=== PATIENT | male | born 1965 | race Caucasian/White ===

== ENCOUNTER 2021-11-23 11:15 | Emergency (ER) | payer OTHER ==
[~2021-11-23] VITALS: Ht 172.7 cm; Wt 108.9 kg
[2021-11-23 11:27] VITALS: BP 149/84
--- NOTE | 2021-11-23 11:35 | NUR ---
56 y/o male biba from home c/o bilateral foot pain x 1 wk. pt states he was diagnosed with plantar fascitis and given medication but states it does not work. Pt states he is suicidal and wants to slit wrists. Pt has had multiple attempts of suicide in the past. Awake and alert. Pt tearful when speaking. States 9/10 aching pain. VSS medhx: anxiety, depression
--- NOTE | 2021-11-23 11:36 | NUR ---
Gilmer PANG at bedside writing [phone] hold
--- NOTE | 2021-11-23 11:42 | NUR ---
Pt ambulated to restroom for collection of urine
[2021-11-23] MEDS ORDERED: ACETAMINOPHEN EXTRA STRENGTH 500 MG TAB PO ONE ×2 (12:50→23:35)
[2021-11-23 13:18] LABS: BASOPHILS % (AUTO) 0.3 % (0.0-2.0); EOSINOPHILS # (AUTO) 0.1 K/uL (0-0.4); EOSINOPHILS % (AUTO) 1.2 % (0.0-4.0); HEMATOCRIT 47.6 % (36-52); HEMOGLOBIN 16.5 g/dL (12.0-18.0); LYMPHOCYTES # (AUTO) 0.6 K/uL (2.0-11.5); LYMPHOCYTES % (AUTO) 12.6 % (20.5-51.1); MEAN CORPUSCULAR HEMOGLOBIN 33 pg (27-31); MEAN CORPUSCULAR HGB CONC 35 g/dL (33-37); MEAN CORPUSCULAR VOLUME 95.5 fL (80-94); MONOCYTES # (AUTO) 0.4 K/uL (0.8-1.0); MONOCYTES % (AUTO) 8.8 % (1.7-9.3); NEUTROPHILS # (AUTO) 3.9 K/uL (1.8-7.7); NEUTROPHILS % (AUTO) 77.1 % (42.2-75.2); PLATELET COUNT (AUTO) 198 K/uL (140-450); RED BLOOD CELL COUNT(AUTO) 4.99 MIL/uL (4.20-6.10); RED CELL DISTRIBUTION WIDTH 13.4 % (11.6-13.7)
[2021-11-23 13:45] LABS: ALBUMIN 3.8 g/dL (3.4-5.0); ANION GAP 14.1 (8-16); ASPARTATE AMINOTRANSFERASE 26 U/L (15-37); CARBON DIOXIDE 27.4 mmol/L (21-32); CHLORIDE 107 mmol/L (98-107); CREATININE 0.8 mg/dL (0.6-1.3); GFR ARICAN-AMERICAN 128 mL/min (>90); GLUCOSE 102 mg/dL (74-106); POTASSIUM 4.5 mmol/L (3.5-5.1); SODIUM SERUM 144 mmol/L (136-145); TOTAL BILIRUBIN 0.4 mg/dL (0.0-1.0); UREA NITROGEN, BLOOD 13 mg/dL (7-18)
[2021-11-23] MEDS ORDERED: LORazepam 1 MG TAB PO ONE (13:55)
[2021-11-23 13:57] LABS: SALICYLATE < 2.8 mg/dL (2.8-20.0)
[2021-11-23 13:58] LABS: ACETAMINOPHEN < 0.5 ug/ml (10-30)
[2021-11-23] MEDS ORDERED: diphenhydrAMINE 50 MG CAP PO ONE ×2 (14:05→22:55)
--- NOTE | 2021-11-23 15:15 | NUR ---
MOVED TO ER BED 6
[2021-11-23 17:22] LABS: BARBITURATE, URINE NEGATIVE ng/ml (NEG <=200); BENZODIAZEPINE, URINE NEGATIVE ng/mL (NEG <=200); CANNABINOID, URINE NEGATIVE ng/mL (NEG <=50); COCAINE, URINE NEGATIVE ng/mL (NEG <=300); OPIATE, URINE NEGATIVE ng/mL (NEG <=2000); PHENCYCLIDINE SCREEN,URINE NEGATIVE ng/mL (NEG <=25)
[2021-11-23] MEDS ORDERED: PARoxetine 20 MG TAB PO SCH (20:05)
[2021-11-23] MEDS ORDERED: PAX10 PO (20:06)
[2021-11-23] MEDS ORDERED: PARoxetine 10 MG TAB PO SCH (20:25)
--- NOTE | 2021-11-24 07:25 | NUR ---
GAVE TRANSFER OF CARE REPORT TO PEBBLES HERNANDEZ
--- NOTE | 2021-11-24 08:29 | NUR ---
Called ER/[facility]. He confirmed [facility] was called to discuss patient. [facility] their own patients. [facility] should have a facility to place their positive patients
--- NOTE | 2021-11-24 08:35 | NUR ---
PT BEING TELEPSYCHED AT THIS TIME.
[2021-11-24] MEDS ORDERED: PARoxetine 10 MG TAB PO SCH (09:00)
--- NOTE | 2021-11-24 10:28 | NUR ---
PT EATING BREAKFAST TRAY
--- NOTE | 2021-11-24 12:00 | NUR ---
PROVIDED PT WITH LUNCH TRAY
--- NOTE | 2021-11-24 14:10 | NUR ---
CALLED PT'S BROTHER WAYNE. NO ANSWER, LEFT MESSAGE.
[2021-11-24 14:27] VITALS: BP 143/74
--- NOTE | 2021-11-24 14:28 | NUR ---
Patient discharged with v/s stable. Written and verbal after care instructions given FOR MAJOR DEPRESSIVE DISORDER AND COVID 19 and explained. Patient verbalized understanding. Ambulatory with steady gait. All questions addressed prior to discharge. Advised to follow up with PMD.
--- NOTE | 2021-11-24 14:28 | NUR ---
PT'S FRIEND CALLED ELY. STATED WILL BE ABLE TO GIVE HIM A RIDE HOME
== END 2021-11-24 14:28 | disposition home or self-care (01) ==
LOC: MED 11:15
DX: U07.1 COVID-19 (principal); R45.851 Suicidal ideations; M72.2 Plantar fascial fibromatosis
CPT/HCPCS: 36415; 80053; 80305; 85025; 87426; 99285; G0480; G0482; Q0163; U0003

== ENCOUNTER 2021-11-28 08:00 | Inpatient (IN) | payer OTHER, SELFPAY ==
[~2021-11-28] VITALS: Ht 182.9 cm; Wt 95.3 kg
[~2021-11-28 08:00] MED LIST: PAX10 PO
[2021-11-28 08:16] VITALS: BP 132/87
--- NOTE | 2021-11-28 08:20 | NUR ---
Kendall palmer in [facility] - 11/28/21 at 1008 by [facility] All blood and urine specimens walked down to lab.
--- NOTE | 2021-11-28 08:37 | NUR ---
BIBA TO ER BED 5
--- NOTE | 2021-11-28 08:40 | NUR ---
novel and jerri swabbed at this time
--- NOTE | 2021-11-28 08:45 | NUR ---
56 y/o male, pt states he has been feeling increased anxiety and depression, states he no longer wants to live, PD states pt cut himself at home to attempt to kill himself. 3 partial thickess lacerations to wrist. Lacerations are dry and not actively bleeding at this time. Pt reports current SI, states he does not have anything to live for at this time. Resp even and unlabored on RA. PmhX: Anxiety, depression, hernia Allergies: Compazine, reglan, prozac (increased anxiety) Home meds: Vistaril
--- NOTE | 2021-11-28 09:10 | NUR ---
EKG done and reported to TAVON Rogers. MARNIE at this time. Pt remains on satellite project site monitor.
--- NOTE | 2021-11-28 09:20 | NUR ---
Radiology at bedside to perform Xray
--- NOTE | 2021-11-28 09:20 | NUR ---
All urine/blood specimens walked down to lab
[2021-11-28] MEDS ORDERED: LIDOCAINE MPF 1% 10 MG/ML VIAL INJ ONE (09:35)
--- NOTE | 2021-11-28 09:55 | NUR ---
Vicki mendiola student under supervision of TAVON Rogers at bedside to suture pt. All supplies and lidocaine at bedside
[2021-11-28] MEDS ORDERED: LORazepam 2 MG/ML VIAL IVP ONE (10:55)
[2021-11-28 11:01] LABS: BASOPHILS % (AUTO) 0.2 % (0.0-2.0); EOSINOPHILS % (AUTO) 0.6 % (0.0-4.0); HEMATOCRIT 44.8 % (36-52); HEMOGLOBIN 15.6 g/dL (12.0-18.0); LYMPHOCYTES # (AUTO) 0.7 K/uL (2.0-11.5); LYMPHOCYTES % (AUTO) 8.4 % (20.5-51.1); MEAN CORPUSCULAR HEMOGLOBIN 33 pg (27-31); MEAN CORPUSCULAR HGB CONC 35 g/dL (33-37); MEAN CORPUSCULAR VOLUME 95.7 fL (80-94); MONOCYTES # (AUTO) 0.6 K/uL (0.8-1.0); NEUTROPHILS # (AUTO) 6.5 K/uL (1.8-7.7); NEUTROPHILS % (AUTO) 82.8 % (42.2-75.2); PLATELET COUNT (AUTO) 221 K/uL (140-450); RED BLOOD CELL COUNT(AUTO) 4.68 MIL/uL (4.20-6.10); RED CELL DISTRIBUTION WIDTH 13.2 % (11.6-13.7); WHITE BLOOD COUNT (AUTO) 7.9 K/uL (4.8-10.8)
[2021-11-28 11:16] LABS: ACETAMINOPHEN 0.6 ug/ml (10-30); ALBUMIN 3.4 g/dL (3.4-5.0); ANION GAP 10.7 (8-16); ASPARTATE AMINOTRANSFERASE 34 U/L (15-37); CARBON DIOXIDE 25.7 mmol/L (21-32); CHLORIDE 106 mmol/L (98-107); CREATININE 0.5 mg/dL (0.6-1.3); GFR ARICAN-AMERICAN 220 mL/min (>90); GLUCOSE 92 mg/dL (74-106); POTASSIUM 4.4 mmol/L (3.5-5.1); SODIUM SERUM 138 mmol/L (136-145); TOTAL BILIRUBIN 0.5 mg/dL (0.0-1.0); UREA NITROGEN, BLOOD 17 mg/dL (7-18)
[2021-11-28 11:28] LABS: SALICYLATE < 2.8 mg/dL (2.8-20.0)
--- NOTE | 2021-11-28 12:50 | NUR ---
Patient appears to be resting comfortably in bed. Vital Signs within normal limits. Respirations even and unlabored. Pt safety measures in place at this time.
[2021-11-28 13:11] LABS: BENZODIAZEPINE, URINE NEGATIVE ng/mL (NEG <=200); CANNABINOID, URINE NEGATIVE ng/mL (NEG <=50); COCAINE, URINE NEGATIVE ng/mL (NEG <=300); OPIATE, URINE POSITIVE ng/mL (NEG <=2000); PHENCYCLIDINE SCREEN,URINE NEGATIVE ng/mL (NEG <=25)
[2021-11-28 13:12] LABS: BARBITURATE, URINE NEGATIVE ng/ml (NEG <=200)
[2021-11-28 13:37] LABS: APPEARANCE,URINE HAZY (CLEAR); BILIRUBIN,URINE NEGATIVE (NEGATIVE); BLOOD, URINE NEGATIVE (NEGATIVE); COLOR,URINE YELLOW (YELLOW); LEUKOCYTE ESTERASE ,URINE NEGATIVE (NEGATIVE); NITRITE, URINE NEGATIVE (NEGATIVE); UGLUCOSE NEGATIVE (NEGATIVE)
--- NOTE | 2021-11-28 14:26 | NUR ---
Patient appears to be resting comfortably in bed. Vital Signs within normal limits. Respirations even and unlabored. All safety measures in place under direct observation at this time per hospital policy.
--- NOTE | 2021-11-28 16:10 | NUR ---
Pt remains AOx4, able to make all needs knwon. Right arm lacerations closed by sutres, no active s/sx of bleeding at this time. Pt appears calm and is copperate at this time. Patient appears to be resting comfortably in bed. Vital Signs within normal limits. Respirations even and unlabored. All safety measures in place at this time. Direct observation per facility standards.
--- NOTE | 2021-11-28 17:42 | NUR ---
Patient appears to be resting comfortably in bed.Pt remains AOx4, able to make all needs knwon. Right arm lacerations closed by sutres, no active s/sx of bleeding at this time. Pt appears calm and is copperate at this time. Vital Signs within normal limits. Respirations even and unlabored. All safety measures in place at this time. Direct observation per facility standards.
--- NOTE | 2021-11-28 19:22 | NUR ---
Pt report given to MARY aSnchez. Transfer of care at this time.
[2021-11-28] MEDS ORDERED: MORPHINE SULFATE 2 MG/ML SYR IVP PRN (20:05)
[2021-11-28] MEDS ORDERED: POTASSIUM CHLORIDE 10 MEQ TABER PO PRN (20:05)
[2021-11-28] MEDS ORDERED: DOCUSATE SODIUM 100 MG GELCAP PO PRN (20:05)
[2021-11-28] MEDS ORDERED: MAG SULF 2000 MG/WATER PREMIX 50 ML IV PRN (20:05)
[2021-11-28] MEDS ORDERED: ONDANSETRON 4 MG/2 ML VIAL IVP PRN (20:05)
[2021-11-28] MEDS ORDERED: SODIUM PHOS / POTASSIUM PHOS 1 PKT PDR PO PRN (20:05)
[2021-11-28] MEDS ORDERED: ACETAMINOPHEN 325 MG TAB PO PRN (20:05)
--- NOTE | 2021-11-28 20:37 | NUR ---
[facility] [phone]
[2021-11-28] MEDS: LORazepam 2 MG/ML VIAL IM/IVP PRN (21:10)
[2021-11-28 22:09] LABS: PROTHROMBIN TIME 10.8 secs (10.8-13.4)
[2021-11-28 22:10] LABS: PHOSPHORUS 1.9 mg/dL (2.5-4.9); THYROID STIMULATING HORMONE 0.58 uIU/mL (0.34-3.74)
--- NOTE | 2021-11-29 06:50 | NUR ---
PATIENT HAS BEEN SCREENED AND CATEGORIZED HIGH NUTRITION RISK. PATIENT WILL BE SEEN WITHIN 1-2 DAYS OF ADMISSION. 11/30/21-12/01/21 STEPHAN RODRIGUEZ MS, RDN Addendum: 12/01/21 at [address] PATIENT HAS BEEN RE-CATEGORIZED LOW NUTRITION RISK. PATIENT WILL BE SEEN WITHIN 7 DAYS OF ADMISSION. 12/05/[address]
[2021-11-29 07:21] LABS: ALBUMIN 3.3 g/dL (3.4-5.0); ANION GAP 11.6 (8-16); CARBON DIOXIDE 29.7 mmol/L (21-32); CREATININE 0.7 mg/dL (0.6-1.3); MAGNESIUM 2.1 mg/dL (1.8-2.4); POTASSIUM 4.3 mmol/L (3.5-5.1); TOTAL BILIRUBIN 0.5 mg/dL (0.0-1.0)
--- NOTE | 2021-11-29 07:30 | NUR ---
REPORT RECEIVED FROM MARY SANDOVAL FOR CONTINUITY OF CARE.
--- NOTE | 2021-11-29 07:30 | NUR ---
REPORT GIVEN TO YOUSUF HERNANDEZ.
[2021-11-29 07:34] LABS: BASOPHILS % (AUTO) 0.4 % (0.0-2.0); EOSINOPHILS # (AUTO) 0.1 K/uL (0-0.4); EOSINOPHILS % (AUTO) 1.6 % (0.0-4.0); HEMATOCRIT 42.8 % (36-52); HEMOGLOBIN 14.9 g/dL (12.0-18.0); LYMPHOCYTES # (AUTO) 1.2 K/uL (2.0-11.5); LYMPHOCYTES % (AUTO) 17.5 % (20.5-51.1); MEAN CORPUSCULAR HEMOGLOBIN 33 pg (27-31); MEAN CORPUSCULAR HGB CONC 35 g/dL (33-37); MONOCYTES # (AUTO) 0.6 K/uL (0.8-1.0); MONOCYTES % (AUTO) 9.7 % (1.7-9.3); NEUTROPHILS # (AUTO) 4.7 K/uL (1.8-7.7); NEUTROPHILS % (AUTO) 70.8 % (42.2-75.2); PLATELET COUNT (AUTO) 225 K/uL (140-450); RED BLOOD CELL COUNT(AUTO) 4.45 MIL/uL (4.20-6.10); RED CELL DISTRIBUTION WIDTH 13.1 % (11.6-13.7); WHITE BLOOD COUNT (AUTO) 6.7 K/uL (4.8-10.8)
--- NOTE | 2021-11-29 07:50 | NUR ---
Kendall palmer in [facility] - 11/29/21 at 0803 by [email or web address] STONE SPECIMEN COLLECTED
--- NOTE | 2021-11-29 08:00 | NUR ---
Kendall palmer in [facility] - 11/29/21 at 0803 by [email or web address] STONE SPECIMEN TAKEN TO LAB
--- NOTE | 2021-11-29 08:15 | NUR ---
Note estela in [facility] - 11/29/21 at 0843 by [email or web address] BREAKFAST GIVEN TO PATIENT, NO DISTRESS NOTED. ALL NEEDS MET AT THIS TIME.
[2021-11-29] MEDS: LORazepam 2 MG/ML VIAL IM/IVP PRN (08:18)
--- NOTE | 2021-11-29 08:18 | NUR ---
PATIENT IN EMOTIONAL DISTRESS, VOICED INCREASE IN ANXIETY. PRN ATIVAN GIVEN, PATIENT TOLERATED WELL.
--- NOTE | 2021-11-29 08:30 | NUR ---
PATIENT GIVEN BREAKFAST, ANXIETY LEVELS DECREASED, NO DISTRESS NOTED AT THIS TIME. ALL PATIENT NEEDS MET.
--- NOTE | 2021-11-29 08:45 | NUR ---
PATIENT RESTING COMFORTABLY IN BED.
--- NOTE | 2021-11-29 10:57 | NUR ---
PATIENT ESCORTED TO RESTROOM W/ MALE GLOBAL CHIEF CREATIVE OFFICER
--- NOTE | 2021-11-29 11:02 | NUR ---
PATIENT BACK IN BED, ALL NEEDS MET AT THIS TIME
--- NOTE | 2021-11-29 12:52 | NUR ---
PATIENT RESTING COMFORTABLY IN BED.
[2021-11-29] MEDS ORDERED: HYDROXYZINE HYDROCHLORIDE 25 MG TAB PO PRN (13:20)
[2021-11-29] MEDS: HYDROcodone/APAP 5/325 MG 1 TAB TAB PO PRN (16:19)
--- NOTE | 2021-11-29 19:06 | NUR ---
REPORT RECEIVED FROM FILIPPO TO. ASSUMED CARE AT THIS TIME.
--- NOTE | 2021-11-29 19:31 | NUR ---
Pt report given to MARY NAZARIO . Transfer of care at this time.
--- NOTE | 2021-11-29 19:32 | NUR ---
PT WITHIN VIEW. 1:[address] ALL NEEDS MET AT THIS TIME. WILL CONTINUE TO MONITOR.
[2021-11-29] MEDS: PARoxetine 10 MG TAB PO SCH (20:45)
[2021-11-29] MEDS: ZOLPIDEM 5 MG TAB PO PRN (20:46)
--- NOTE | 2021-11-29 20:46 | NUR ---
PT REQUESTING SLEEPING AID AT THIS TIME. PT MEDICATED WITH LYNDON AGUERO
--- NOTE | 2021-11-29 22:40 | NUR ---
PT C/O FEELING ANXIOUS. PRN ATARAX PROVIDED.
--- NOTE | 2021-11-29 23:22 | NUR ---
PT SEEN WITH EYES CLOSED. VISIBLE CHEST RISE AND FALL NOTED. 1:[address] WILL CONTINUE MONITORING.
--- NOTE | 2021-11-30 01:53 | NUR ---
PT SEEN WITH EYES CLOSED. VISIBLE CHEST RISE AND FALL NOTED. 1:[address] WILL CONTINUE MONITORING.
--- NOTE | 2021-11-30 04:53 | NUR ---
Patient appears to be resting comfortably in bed. Respirations even and unlabored. 1:[address] for safety precautions. All needs met at this time. Will continue to monitor.
--- NOTE | 2021-11-30 07:09 | NUR ---
REPORT GIVEN TO MARY PENNINGTON. TRANSFER OF CARE AT THIS TIME.
--- NOTE | 2021-11-30 07:13 | NUR ---
REPORT RECEIVED FROM ARAVIND HERNANDEZ, TRANSFER OF CARE AT THIS. PT RESTING IN BED WITH EVEN AND UNLABORED RESPIRATIONS OBSERVED, NO DISTRESS NOTED. WILL CONTINUE TO MONITOR.[address]
[2021-11-30] MEDS ORDERED: PARoxetine 20 MG TAB PO SCH (09:00)
--- NOTE | 2021-11-30 09:32 | NUR ---
DR CHANDLER AT BEDSIDE EVALUATING PT
[2021-11-30 10:16] LABS: BASOPHILS % (AUTO) 0.3 % (0.0-2.0); EOSINOPHILS # (AUTO) 0.1 K/uL (0-0.4); EOSINOPHILS % (AUTO) 1.2 % (0.0-4.0); HEMATOCRIT 41.3 % (36-52); HEMOGLOBIN 14.7 g/dL (12.0-18.0); LYMPHOCYTES # (AUTO) 0.9 K/uL (2.0-11.5); LYMPHOCYTES % (AUTO) 15.7 % (20.5-51.1); MEAN CORPUSCULAR HEMOGLOBIN 34 pg (27-31); MEAN CORPUSCULAR HGB CONC 35 g/dL (33-37); MEAN CORPUSCULAR VOLUME 94.9 fL (80-94); MONOCYTES # (AUTO) 0.5 K/uL (0.8-1.0); MONOCYTES % (AUTO) 8.4 % (1.7-9.3); NEUTROPHILS # (AUTO) 4.4 K/uL (1.8-7.7); NEUTROPHILS % (AUTO) 74.4 % (42.2-75.2); PLATELET COUNT (AUTO) 211 K/uL (140-450); RED BLOOD CELL COUNT(AUTO) 4.36 MIL/uL (4.20-6.10); RED CELL DISTRIBUTION WIDTH 13.2 % (11.6-13.7); WHITE BLOOD COUNT (AUTO) 5.9 K/uL (4.8-10.8)
[2021-11-30 10:52] LABS: ALBUMIN 3.1 g/dL (3.4-5.0); ANION GAP 11.6 (8-16); CARBON DIOXIDE 26.7 mmol/L (21-32); CREATININE 0.7 mg/dL (0.6-1.3); MAGNESIUM 2.2 mg/dL (1.8-2.4); POTASSIUM 4.3 mmol/L (3.5-5.1); TOTAL BILIRUBIN 0.4 mg/dL (0.0-1.0)
--- NOTE | 2021-11-30 11:45 | NUR ---
PT SITTING UP IN BED AND REPORTING THAT HE FEELS VERY ANXIOUS. WILL CARRY OUT PRN ATIVAN ORDER.
--- NOTE | 2021-11-30 13:00 | NUR ---
PT OFFERED LUNCH TRAY, STATED HE WASNT READY AND WOULD LIKE IT A LATER TIME.
--- NOTE | 2021-11-30 19:15 | NUR ---
RECEIVED FROM MARY PENNINGTON. ASSUMED CARE AT THIS TIME. 1:[address] FOR SAFETY PRECAUTIONS. WILL CONTINUE TO MONITOR.
--- NOTE | 2021-11-30 20:57 | NUR ---
PT SEEN LAYING SUPINE IN BED. VISIBLE CHEST RISE AND FALL. VSS. C/O 5/10 BILATERAL FOOT PAIN.
[2021-11-30] MEDS: PARoxetine 10 MG TAB PO SCH (21:16)
[2021-11-30] MEDS: HYDROcodone/APAP 5/325 MG 1 TAB TAB PO PRN (21:17)
[2021-11-30] MEDS: ZOLPIDEM 5 MG TAB PO PRN (23:12)
--- NOTE | 2021-11-30 23:12 | NUR ---
PT REQUESTING AMBIEN TO SLEEP. MEDICATION PROVIDED.
--- NOTE | 2021-12-01 00:43 | NUR ---
PT SEEN WITH EYES CLOSED. VISIBLE CHEST RISE AND FALL NOTED. 1:[address] FOR SAFETY PRECAUTIONS. WILL CONTINUE TO MONITOR.
--- NOTE | 2021-12-01 05:50 | NUR ---
PT SEEN WITH EYES CLOSED. VISIBLE CHEST RISE AND FALL NOTED. 1:[address] FOR SAFETY PRECAUTIONS. WILL CONTINUE TO MONITOR.
--- NOTE | 2021-12-01 07:04 | NUR ---
HANDOFF TO MARY PENNINGTON. TRANSFER OF CARE
--- NOTE | 2021-12-01 07:05 | NUR ---
RECEIVED REPORT FROM ARAVIND HERNANDEZ, TRANSFER OF CARE AT THIS TIME. WILL WORK ALONG SIDE YOUSUF BARKLEY TAKING CARE OF PT. PT RESTING AT THIS TIME, EVEN AND UNLABORED RESPRIATIONS OBSERVED, WILL CONTINUE TO MONITOR
--- NOTE | 2021-12-01 08:15 | NUR ---
PATIENT EATING BREAKFAST IN BED, NO SIGNS OF DISTRESS NOTED AT THIS TIME. ALL PATIENT NEEDS MET
--- NOTE | 2021-12-01 09:00 | NUR ---
PATIENT AMBULATED W/ SEO ASSISTANT
[2021-12-01 09:31] LABS: BASOPHILS % (AUTO) 0.4 % (0.0-2.0); EOSINOPHILS # (AUTO) 0.1 K/uL (0-0.4); EOSINOPHILS % (AUTO) 1.4 % (0.0-4.0); HEMATOCRIT 39.5 % (36-52); LYMPHOCYTES # (AUTO) 0.9 K/uL (2.0-11.5); LYMPHOCYTES % (AUTO) 12.9 % (20.5-51.1); MEAN CORPUSCULAR HEMOGLOBIN 34 pg (27-31); MEAN CORPUSCULAR HGB CONC 35 g/dL (33-37); MEAN CORPUSCULAR VOLUME 94.9 fL (80-94); MONOCYTES # (AUTO) 0.5 K/uL (0.8-1.0); MONOCYTES % (AUTO) 7.7 % (1.7-9.3); NEUTROPHILS # (AUTO) 5.5 K/uL (1.8-7.7); NEUTROPHILS % (AUTO) 77.6 % (42.2-75.2); PLATELET COUNT (AUTO) 219 K/uL (140-450); RED BLOOD CELL COUNT(AUTO) 4.16 MIL/uL (4.20-6.10); RED CELL DISTRIBUTION WIDTH 12.7 % (11.6-13.7)
[2021-12-01 10:26] LABS: ALBUMIN 3.2 g/dL (3.4-5.0); ANION GAP 12.4 (8-16); CARBON DIOXIDE 26.4 mmol/L (21-32); CREATININE 0.7 mg/dL (0.6-1.3); MAGNESIUM 2.1 mg/dL (1.8-2.4); POTASSIUM 3.8 mmol/L (3.5-5.1); TOTAL BILIRUBIN 0.3 mg/dL (0.0-1.0)
[2021-12-01] MEDS ORDERED: ATA25 PO (11:01)
[2021-12-01] MEDS ORDERED: PAX10 PO (11:01)
[2021-12-01] MEDS: LORazepam 2 MG/ML VIAL IM/IVP PRN (11:40)
--- NOTE | 2021-12-01 12:09 | NUR ---
PATIENT RESTING COMFORTABLY IN BED, NO SIGNS OF DISTRESS NOTED AT THIS TIME.
--- NOTE | 2021-12-01 17:32 | NUR ---
ELY LOGAN- FRIEND CALL FOR UPDATES: [phone]
--- NOTE | 2021-12-01 19:30 | NUR ---
Pt report given to MARY NAZARIO. Transfer of care at this time.
--- NOTE | 2021-12-01 19:30 | NUR ---
R HAND IV DISCONTINUED.
--- NOTE | 2021-12-01 19:35 | NUR ---
RECEIVED REPORT FROM FILIPPO TO. ASSUMED CARE AT THIS TIME.
[2021-12-01] MEDS: PARoxetine 10 MG TAB PO SCH (20:53)
[2021-12-01] MEDS: ZOLPIDEM 5 MG TAB PO PRN (20:53)
[2021-12-01] MEDS: HYDROcodone/APAP 5/325 MG 1 TAB TAB PO PRN (20:53)
--- NOTE | 2021-12-01 20:56 | NUR ---
PT REQUESTING SLEEP AID AND PAIN MEDICATION FOR 6/10 PAIN BILATERAL FOOT PAIN. PRN PROVIDED AT THIS TIME.
--- NOTE | 2021-12-01 23:20 | NUR ---
PT LAYING SUPINE IN BED. NAD NOTED. ALL NEEDS MET AT THIS TIME.1:1 MONITORING FOR SAFETY PRECAUTIONS. WILL CONTINUE TO MONITOR.
[2021-12-02] MEDS: LORazepam 2 MG/ML VIAL IM/IVP PRN ×3 (02:25→21:40)
--- NOTE | 2021-12-02 07:28 | NUR ---
HANDOFF GIVEN TO MARY FRANCIS. TRANSFER OF CARE.
--- NOTE | 2021-12-02 07:40 | NUR ---
RECEIVED REPORT FROM MARY NAZARIO. ASSUMED CARE AT THIS TIME.
[2021-12-02] MEDS ORDERED: MORPHINE SULFATE 2 MG/ML SYR IVP PRN (08:25)
[2021-12-02] MEDS ORDERED: HYDROcodone/APAP 5/325 MG 1 TAB TAB PO PRN (08:25)
--- NOTE | 2021-12-02 09:07 | NUR ---
PATIENT PROVIDED WITH BREAKFAST TRAY, PATIENT SITTING UP IN BED EATING. ALL NEEDS MET AT THIS TIME.
[2021-12-02 09:10] LABS: BASOPHILS % (AUTO) 0.3 % (0.0-2.0); EOSINOPHILS # (AUTO) 0.1 K/uL (0-0.4); EOSINOPHILS % (AUTO) 1.2 % (0.0-4.0); HEMATOCRIT 39.8 % (36-52); LYMPHOCYTES # (AUTO) 0.8 K/uL (2.0-11.5); LYMPHOCYTES % (AUTO) 9.8 % (20.5-51.1); MEAN CORPUSCULAR HEMOGLOBIN 34 pg (27-31); MEAN CORPUSCULAR HGB CONC 35 g/dL (33-37); MEAN CORPUSCULAR VOLUME 95.2 fL (80-94); MONOCYTES # (AUTO) 0.8 K/uL (0.8-1.0); MONOCYTES % (AUTO) 8.8 % (1.7-9.3); NEUTROPHILS # (AUTO) 6.9 K/uL (1.8-7.7); NEUTROPHILS % (AUTO) 79.9 % (42.2-75.2); PLATELET COUNT (AUTO) 231 K/uL (140-450); RED BLOOD CELL COUNT(AUTO) 4.19 MIL/uL (4.20-6.10); RED CELL DISTRIBUTION WIDTH 13.2 % (11.6-13.7); WHITE BLOOD COUNT (AUTO) 8.6 K/uL (4.8-10.8)
[2021-12-02 09:45] LABS: ALBUMIN 3.1 g/dL (3.4-5.0); ANION GAP 11.1 (8-16); CARBON DIOXIDE 27.9 mmol/L (21-32); CREATININE 0.8 mg/dL (0.6-1.3); TOTAL BILIRUBIN 0.4 mg/dL (0.0-1.0)
--- NOTE | 2021-12-02 10:44 | NUR ---
PSYCHIATRIST ON TELEPAD SPEAKING WITH PATIENT
--- NOTE | 2021-12-02 11:00 | NUR ---
DR. SIMMONS BEDSIDE SPEAKING WITH PATIENT
--- NOTE | 2021-12-02 11:03 | NUR ---
GABRIEL PANG CONTACTED TO PLACE PATIENT ON 5150 HOLD PER PSY DOCTOR RECOMMENDATION
--- NOTE | 2021-12-02 12:34 | NUR ---
GABRIEL PD AT BEDSIDE SPEAKING WITH PATIENT
--- NOTE | 2021-12-02 13:00 | NUR ---
JESSY PLANNING LATE ENTRY CALL BEHAVIORAL CALL CENTER AT TO GET STATUS ON PATIENT SEARCH FOR PSYCH HOSPITAL PLACEMENT. ARPAN SHE DO NOT HAVE ANY PATIENT FROM [facility] AT THIS TIME; NATHALY CONFIRM FAX NUMBER AND RE-SEND PATIENT'S INFORMATION AND CLINICALS WITH COMPLETION CONFIRMATION AT ABOUT 13:02. ARPAN CONFIRMED THAT THE FAX SEND BY THESE TRANSIT MAN WAS RECEIVED. ARPAN REPORTED THAT SEARCH WILL BEGAN SOON THE NEGATIVE COVID TEST IS SEND IT AND RECEIVED BY THE BEHAVIORAL CALL CENTER TODAY. NATHALY AGREED AND WILL FOLLOW UP WITH COVID TEST RESULT TO SEND. NATHALY SEND PATIENT'S NEGATIVE COVID TEST TO THE [facility] CALL CENTER AT WITH COMPLETED CONFIRMATION AT ABOUT 14:30. NATHALY CALL [facility] CALL CENTER AT SPOKE TO STUART TO VERIFY THEY HAD RECEIVED UPDATED COVID 19 RESULT TODAY. PER STUART THEY GOT IT AND WILL UPDATE PATIENT'S PACKET AND INFORMATION, WELL SEARCH FOR PLACEMENT. NATHALY THANK STUART FOR UPDATES AND ENDED THE CALL SW/NELSON WILL FOLLOW UP NEEDED. Addendum: 12/03/21 at 1809 by Morenita AGUILAR JESSY PLANNING CALL BEHAVIORAL CAll CENTER AT TO GET PLACEMENT STATUS ON PATIENT. SPOKE TO FAUZIA WHO STATED THAT CASE IS A [place] PATIENT AND DUE TO THAT [place] DO THE PLACEMENT FOR THEIR OWN, PSYCH CASES AND NOT THE [facility]. NATHALY QUESTION WHY INF. WAS NOT PROVIDED TO NATHALY YESTERDAY ON 12/02/2021 SHE SEND THEM INF. AND PATIENT CLINICAL PACKET. ART REPORTED THAT A CALL WAS DONE BY STUART TO THE ED AT ABOUT 17:00 STATING CORRECT INFORMATION ABOUT WHERE REFERRAL HAD TO BE SEND WITH IN [place] SYSTEM. ONCE NATHALY CONFIRMED THEN COPIED AND PASTE NOTE DUE TO NOT SHOWING UP ON REGULAR PATIENT'S NOTE FILE. NOTES IS FOLLOWS: " [place] notified ER Ray , KATHIE Machado did not have initial contact from the time Pt was medically cleared , [facility] [phone] will be placing the Pt to their own psych facilities . KATHIE Machado will initiate a DRJanina to soon as she speaks with someone from the ER, ER number given to [facility] ". NATHALY CONTACTED ED/RN RAY TO FIN OUT UPDATE ON PATIENT'S CASE WITH [facility] PLACEMENT AND DISCUSSED [facility] PHONE CALL REPORTING THE ISSUE. RAY REPORTED AND CONFIRMED THAT PATIENT'S CASE WITH [place] HAS BEEN SEND AND RECEIVED, AT ABOUT 18:35 AND THERE IS ALREADY A SEARCH FOR PSYCH HOSPITALS FOR PATIENT HOWEVER; NO OPEN BEDS HAND BEEN FOUND WITH IN THEIR NETWORK AND HOSPITALS THEREFORE; THE SEARCH CONTINUES AND NATHALY WILL FOLLOW UP NEEDED TO [phone] OR TO WITH ABEBA OR OTHER [place] STAFF. Addendum: 12/04/21 at 1237 by Morenita Malave NATHALY CALL [place] AT SPOKE TO [place] NELSON BAUM WHO STATED THAT PATIENT WILL NOT BE ABLE TO BE PLACED TO A PSYCH HOSPITAL UNTIL 12/07/2021 DUE TO HIS COVID STATUS. NATHALY INFORMED NELSON BAUM THAT PATIENT WAS RE- TESTED AND ON 12/02/2021 PATIENT HAD A NEGATIVE COVID TEST RESULT. BAUTISTA REQUESTED FOR NATHALY TO FAX PATIENT'S NEGATIVE TEST RESULT AT WITH COMPLETED CONFIRMATION AT ABOUT 12:07 AND NATHALY/NELSON WILL BE FOLLOWING UP WITH PATIENT STATUS NEEDED. Addendum: 12/04/21 at 1455 by Morenita Malave [place] PLANNING VENA FROM [facility] CALL THESE TRANSIT MAN STATING THAT IF PATIENT'S HAS TESTED POSITIVE FOR PCR THEY CAN'T NOT BE ADMITTED TO THEIR PSYCH FACILITY UNTIL 10 DAYS HAS PASSED FROM THAT POSITIVE TEST. IN PATIENT'S CASE HE IS NOT ABLE TO BE IN THEIR FACILITY UNTIL 12/08/2021. NATHALY TOOK INFORMATION DISCUSSED WITH ASSISTANT BOOKKEEPER AND ENDED THE CALL.
[2021-12-02] MEDS: HYDROcodone/APAP 5/325 MG 1 TAB TAB PO PRN ×2 (13:41→21:40)
--- NOTE | 2021-12-02 13:41 | NUR ---
PATIENT C/O 5/10 PAIN AND ANXIETY, MEDICATED PRN ORDER.
--- NOTE | 2021-12-02 17:01 | NUR ---
CAll center notified KATHIE Barker did not have initial contact from the time pt was medically cleared , [facility] [phone] will be placing the pt to their own psych facilities . KATHIE Machado will initiate a DRJanina to soon as she speaks with someone from the ER, ER number given to KATHIE.
--- NOTE | 2021-12-02 17:33 | NUR ---
PATIENT AMBULATED TO RESTROOM WITH STEADY GAIT.
--- NOTE | 2021-12-02 19:12 | NUR ---
PATIENT PROVIDED WITH DINNER TRAY, PATIENT SITTING UP IN BED EATING. ALL NEEDS MET AT THIS TIME.
--- NOTE | 2021-12-02 21:41 | NUR ---
PATIENT C/O 7/10 LEG PAIN AND RESTLESSNESS. MEDICATED WITH PRN NORCO AND ATIVAN ORDERED.
--- NOTE | 2021-12-02 22:30 | NUR ---
PATIENT LYING IN BED WITH EYES CLOSED, WILL CONTINUE TO MONTIOR. ALL NEEDS MET AT THIS TIME.
[2021-12-02] MEDS: PARoxetine 10 MG TAB PO SCH (22:47)
--- NOTE | 2021-12-02 23:31 | NUR ---
Pt report given to MARY ANTONY. Transfer of care at this time.
--- NOTE | 2021-12-03 05:00 | NUR ---
Pt report given to nikolai Major. Transfer of care at this time.
--- NOTE | 2021-12-03 08:42 | NUR ---
Patient appears to be resting comfortably in bed. Vital Signs within normal limits. Respirations even and unlabored.
[2021-12-03 08:57] LABS: BASOPHILS % (AUTO) 0.4 % (0.0-2.0); EOSINOPHILS # (AUTO) 0.1 K/uL (0-0.4); EOSINOPHILS % (AUTO) 1.7 % (0.0-4.0); HEMATOCRIT 36.2 % (36-52); HEMOGLOBIN 12.5 g/dL (12.0-18.0); LYMPHOCYTES # (AUTO) 0.8 K/uL (2.0-11.5); LYMPHOCYTES % (AUTO) 11.3 % (20.5-51.1); MEAN CORPUSCULAR HEMOGLOBIN 33 pg (27-31); MEAN CORPUSCULAR HGB CONC 35 g/dL (33-37); MEAN CORPUSCULAR VOLUME 95.8 fL (80-94); MONOCYTES # (AUTO) 0.6 K/uL (0.8-1.0); MONOCYTES % (AUTO) 9.5 % (1.7-9.3); NEUTROPHILS # (AUTO) 5.2 K/uL (1.8-7.7); NEUTROPHILS % (AUTO) 77.1 % (42.2-75.2); PLATELET COUNT (AUTO) 199 K/uL (140-450); RED BLOOD CELL COUNT(AUTO) 3.77 MIL/uL (4.20-6.10); RED CELL DISTRIBUTION WIDTH 13.2 % (11.6-13.7); WHITE BLOOD COUNT (AUTO) 6.8 K/uL (4.8-10.8)
[2021-12-03 09:27] LABS: ALBUMIN 3.1 g/dL (3.4-5.0); ANION GAP 11.1 (8-16); CARBON DIOXIDE 26.9 mmol/L (21-32); CREATININE 0.7 mg/dL (0.6-1.3); MAGNESIUM 2.1 mg/dL (1.8-2.4); TOTAL BILIRUBIN 0.3 mg/dL (0.0-1.0)
--- NOTE | 2021-12-03 12:19 | NUR ---
PT SLEEPING AT THIS TIME, EVEN RISE AND FALL OF CHEST OBSERVED. WILL CONTINUE TO MONITOR
--- NOTE | 2021-12-03 14:19 | NUR ---
PT C/O BILATERAL FEET PAIN AND FEELING VERY ANXIOUS, WILL MEDICATE PER PRN ORDERS.
[2021-12-03] MEDS: HYDROcodone/APAP 5/325 MG 1 TAB TAB PO PRN (14:26)
[2021-12-03] MEDS: LORazepam 2 MG/ML VIAL IM/IVP PRN (14:27)
--- NOTE | 2021-12-03 16:11 | NUR ---
PT REQUESTED THAT HIS FRIEND BRETT TAKE HIS KEYS. SECURITY PAGED AND KEYS GIVEN TO FRIEND.
--- NOTE | 2021-12-03 17:59 | NUR ---
PATIENT IS A 56 YEAR OLD MALE ADMITTED TO THE [facility]/ED ON A 5150 HOLD DUE TO DTS/SI. PATIENT ATTEMPTED TO SUICIDE BY CUTTING HIS RIGHT WRIST FOREARM. SW MEET WITH PATIENT AT BEDSIDE TO COLLECT AND GATHER HIS COLLATERAL INFORMATION. PATIENT WAS AWAKE AND ALERT AT THE TIME OF THE MEETING. PER PATIENT HE HAS BEEN STRUGGLING WITH BOTH FEET PAIN AND HAS SEEN HIS PRIMARY MD AT [place] FOR ASSISTANCE. PER PATIENT NONE OF THE MEDICATIONS HE HAS GOT FOR HIS PAIN HAS MADE ANY IMPROVEMENTS OR HELP WITH HIS PAIN. PATIENT HAS HISTORY OF DEPRESSION AND ANXIETY AND REPORTS THAT WHEN HE IS IN PAIN HE GETS OVERWHELM, DEPRESSED AND ANXIOUS ABOUT NOT BEEN ABLE TO WALK OR GET ASSISTANCE WITH HIS PAIN. PER PATIENT HE HAD A PSYCHIATRIST AT [place] AT [facility] HOWEVER, STOP SEEING HIM BECAUSE MD RETIRED AND PATIENT HAS NOT BEEN ABLE TO GET ANOTHER DOCTOR FOR ABOUT 7 TO 9 MONTHS NOW. PATIENT REPORTED LEAVING HOME ALONE IN [facility] AND NOT HAVING CLOSE FAMILY. PT. HOWEVER WAS ABLE TO IDENTIFY HIS SUPPORT SYSTEM FROM [facility] [facility] OR A CLOSE FRIEND BRETT [place]RAW[place]) AND SOME FRIENDS AT [facility] WHERE HE GOES EVERY WEDNESDAY. PATIENT REPORTED NOT HAVING ISSUES GETTING OR TAKING HIS MEDICATIONS AND IS ABLE TO PICK THEM UP AT THE [facility] IN [facility]. PATIENT REPORTED NOT USING ANY DRUGS OR SUBSTANCES. PATIENT REPORTS BEEN INDEPENDENT WITH NO DME AT HOME. PATIENT REPORTED THAT AFTER DISCHARGE HE WILL FOLLOW UP WITH HIS APPOINTMENTS MADE BY [employer] TIMBER GRADER WITH HIS PODIATRY MD SCHEDULED FOR Wednesday12/08/2021 AT 17:15 AND WITH MENTAL HEALTH PROVIDER IN [place] ON 12/09/2021 AT 14:00. PATIENT REPORTED THAT HE WILL BE SALVAGE DIVER BY HIS FRIEND BRETT AND HE WILL TAKE HIM HOME WHEN HE IS READY FOR DISCHARGE FROM [facility]. SW CALL [place] AT ([phone] AND SPOKE TO [place] NELSON US WHO MADE EVGENY'S APPOINTMENTS TO FOLLOW UP WHEN PATIENT IS READY FOR DC. SW PROVIDED PATIENT WITH APPOINTMENTS INFORMATION AND HE AGREED TO FOLLOW UP AFTER DC. SW WILL FOLLOW UP NEED. Addendum: 12/05/21 at 1206 by Petty Singh CM ASHLEY spoke with [facility] at [place]; [facility] states that [place] is unable to assist with psych placement until 10 days post positive PCR test and that patient will require another COVID test prior to psych placement.
--- NOTE | 2021-12-03 19:14 | NUR ---
PT PROVIDED DINNER TRAY, PT EATING QUIETLY AT THIS TIME. ALL NEEDS MET.
--- NOTE | 2021-12-03 19:51 | NUR ---
REPORT GIVEN TO BRADEN HERNANDEZ, TRANSFER OF CARE AT THIS TIME
--- NOTE | 2021-12-03 20:00 | NUR ---
PATIENT RECVD AWAKE, ALERT, AMBULATORY
[2021-12-03] MEDS: PARoxetine 10 MG TAB PO SCH (21:00)
--- NOTE | 2021-12-03 21:00 | NUR ---
DUE MEDS GIVEN TOLERATED WELL.
--- NOTE | 2021-12-03 23:00 | NUR ---
Patient appears to be resting comfortably in bed. Vital Signs within normal limits. Respirations even and unlabored.
--- NOTE | 2021-12-04 04:30 | NUR ---
STILL ASLEEP, V/S STABLE.
--- NOTE | 2021-12-04 06:50 | NUR ---
REPORT GIVEN TO ADITI HERNANDEZ
--- NOTE | 2021-12-04 06:55 | NUR ---
RECEIVED REPORT FROM BRADEN HERNANDEZ, TRANSFER OF CARE AT THIS TIME. PT RESTING AT THIS TIME, EVEN RISE AND FALL OF CHEST OBSERVED. WILL CONTINUE TO MONITOR
--- NOTE | 2021-12-04 09:16 | NUR ---
PT GIVEN BREAKFAST TRAY, PT EATING QUEITING AT THIS TIME. ALL NEEDS MET
[2021-12-04] MEDS: LORazepam 2 MG/ML VIAL IM/IVP PRN ×2 (11:09→22:46)
--- NOTE | 2021-12-04 12:55 | NUR ---
PT EATING BREAKFAST AT THIS TIME, ALL NEEDS MET AT THIS TIME
--- NOTE | 2021-12-04 15:52 | NUR ---
CASE MANAGEMENT AT BEDSIDE SPEAKING WITH PATIENT
--- NOTE | 2021-12-04 18:00 | NUR ---
PT TAKEN TO [facility] FOR SHOWER. PT TAKEN VIA W/C AND ESCORTED BY SECURITY. EARLY BREASTFEEDING CARE SPECIALIST ASSISTED. ORDER APPROVED BY DR PEARSON
--- NOTE | 2021-12-04 18:14 | NUR ---
PT BACK FROM SHOWER. PT PROVIDED NEW CLEAN GOWN, AND SHEETS. ALL NEEDS MET AT THIS TIME
--- NOTE | 2021-12-04 19:30 | NUR ---
PT AWAKE AND ALERT X4. ALL VSS AT THIS TIME. PT IS SITTING ON THE EDGE OF HIS BED AND ABLE TO MAKE HIS NEEDS KNOWN TO STAFF. BED IN LOWEST POSITION AT THIS TIME
--- NOTE | 2021-12-04 19:34 | NUR ---
REPORT GIVEN TO SHARON HERNANDEZ, TRANSFER OF CARE AT THIS TIME
[2021-12-04] MEDS: PARoxetine 10 MG TAB PO SCH (21:00)
--- NOTE | 2021-12-04 23:11 | NUR ---
PT AWAKE AT THIS TIME. A/O X4. PT IS ABLE TO WALK TO REST ROOM ON HIS OWN. BED IN LOWEST POSITION
--- NOTE | 2021-12-05 00:09 | NUR ---
PT REQUESTED ATIVAN D/T FEELING ANXIOUS AND UNABLE TO SLEEP. GAVE PRN MEDS PER ORDERS. NO OTHER NEEDS AT THIS TIME.
--- NOTE | 2021-12-05 01:13 | NUR ---
PT GOT UP TO USE THE RESTROOM AND CAME BACK TO BED.
--- NOTE | 2021-12-05 03:44 | NUR ---
PT SLEEPING IN BED AT THIS TIME. CHEST RISE AND FALL IS EVEN AND UNLABORED. NO APPARTENT DISTRESS. BED IN LOWEST POSITION
--- NOTE | 2021-12-05 04:21 | NUR ---
PT AMBULATED SELF TO RESTROOM
--- NOTE | 2021-12-05 06:12 | NUR ---
PT SLEEPING IN BED AT THIS TIME. CHEST RISE AND FALL EVEN AND UNLABORED
--- NOTE | 2021-12-05 07:40 | NUR ---
PATIENT RESTING IN BED COMFORTABLY. NO SIGNS OF DISTRESS NOTED AT THIS TIME. BED IN LOWEST POSITION FOR SAFETY MEASURES
--- NOTE | 2021-12-05 07:50 | NUR ---
PATIENT AMBULATED TO RESTROOM W/ STEADY GAIT.
--- NOTE | 2021-12-05 07:52 | NUR ---
PATIENT RETURNED FROM RESTROOM, RESTING IN BED.
--- NOTE | 2021-12-05 08:15 | NUR ---
PATIENT PROVIDED W/ BREAKFAST. ALL NEEDS MET AT THIS TIME
--- NOTE | 2021-12-05 12:00 | NUR ---
PATIENT AMBULATED TO RESTROOM W/ STEADY GAIT
--- NOTE | 2021-12-05 12:03 | NUR ---
PATIENT AMBULATED BACK TO BED W/ STEADY GAIT
--- NOTE | 2021-12-05 15:40 | NUR ---
12/05/21 RD INITIAL ASSESSMENT COMPLETED PLEASE REFER TO NUTRITION ASSESSMENT UNDER CARE ACTIVITY FOR ESTIMATED NUTRITIONAL NEEDS. 1. CONTINUE REGULAR DIET TOLERATED 2. RD TO FOLLOW-UP 7 DAYS, LOW RISK MILADY SERRANO RD
--- NOTE | 2021-12-05 16:00 | NUR ---
PATIENT RESTING COMFORTABLY IN BED, NO SIGNS OF DISTRESS NOTED AT THIS TIME.
[2021-12-05] MEDS ORDERED: LORA-476 PO (16:25)
[2021-12-05 18:33] VITALS: BP 130/62
--- NOTE | 2021-12-05 18:33 | NUR ---
Patient discharged with v/s stable. Written and verbal after care instructions ABOUT COVID AND 51/50 given and explained. Patient alert, oriented and verbalized understanding of instructions. Ambulatory with steady gait. All questions addressed prior to discharge. ID band removed. Patient advised to follow up with PMD. Rx of ATIVAN 1 MG AND PAXIL 10 MG given.
--- NOTE | 2021-12-05 18:54 | NUR ---
The patient's care was reviewed and supervised by Nat Dumont RN.
== END 2021-12-05 18:33 | disposition home or self-care (01) | DRG 178 ==
LOC: MED 08:00 → MMU 20:07
PROVIDERS: ADMIT Family Medicine; ATTEND Family Medicine
PROC: 0HQDXZZ Repair Right Lower Arm Skin, External Approach (ICD-10-PCS; principal; 2021-11-28)
DX: U07.1 COVID-19 (principal); R45.851 Suicidal ideations; E44.1 Mild protein-calorie malnutrition; F32.2 Major depressive disorder, single episode, severe without psychotic features; E83.39 Other disorders of phosphorus metabolism; Z60.2 Problems related to living alone; E86.0 Dehydration; F41.9 Anxiety disorder, unspecified; F42.9 Obsessive-compulsive disorder, unspecified; S51.811A Laceration without foreign body of right forearm, initial encounter; X78.8XXA Intentional self-harm by other sharp object, initial encounter; Z88.8 Allergy status to other drugs, medicaments and biological substances; Z79.899 Other long term (current) drug therapy; Z90.49 Acquired absence of other specified parts of digestive tract; Y93.89 Activity, other specified; Y92.89 Other specified places as the place of occurrence of the external cause; Y99.8 Other external cause status; Z68.28 Body mass index [BMI] 28.0-28.9, adult
CPT/HCPCS: 36415; 71045; 80053; 80305; 81003; 82150; 83690; 83735; 84100; 84443; 84484; 85025; 85610; 85730; 93005; 96374; 99285; G0480; G0482; J2001; J2060; U0003

== ENCOUNTER 2022-07-24 07:33 | Emergency (ER) | payer OTHER ==
[~2022-07-24] VITALS: Ht 167.6 cm; Wt 80.7 kg
[~2022-07-24 07:33] MED LIST changes: +LORA-476 PO
[2022-07-24 07:38] VITALS: BP 137/80
[2022-07-24 08:52] LABS: BASOPHILS % (AUTO) 0.4 % (0.0-2.0); EOSINOPHILS # (AUTO) 0.2 K/uL (0-0.4); EOSINOPHILS % (AUTO) 3.6 % (0.0-4.0); HEMATOCRIT 46.8 % (36-52); HEMOGLOBIN 16.1 g/dL (12.0-18.0); LYMPHOCYTES # (AUTO) 0.6 K/uL (2.0-11.5); LYMPHOCYTES % (AUTO) 8.7 % (20.5-51.1); MEAN CORPUSCULAR HEMOGLOBIN 33 pg (27-31); MEAN CORPUSCULAR HGB CONC 34 g/dL (33-37); MEAN CORPUSCULAR VOLUME 97.1 fL (80-94); MONOCYTES # (AUTO) 0.6 K/uL (0.8-1.0); MONOCYTES % (AUTO) 8.8 % (1.7-9.3); NEUTROPHILS # (AUTO) 5.2 K/uL (1.8-7.7); NEUTROPHILS % (AUTO) 78.5 % (42.2-75.2); PLATELET COUNT (AUTO) 199 K/uL (140-450); RED BLOOD CELL COUNT(AUTO) 4.81 MIL/uL (4.20-6.10); WHITE BLOOD COUNT (AUTO) 6.7 K/uL (4.8-10.8)
[2022-07-24] MEDS ORDERED: LIDOCAINE MPF 1% 0 ML ONE (09:00)
[2022-07-24 09:02] LABS: ANION GAP 13.4 (8-16); CARBON DIOXIDE 25.8 mmol/L (21-32); CREATININE 0.9 mg/dL (0.6-1.3); POTASSIUM 4.2 mmol/L (3.5-5.1)
[2022-07-24] MEDS ORDERED: LIDOCAINE/EPI MPF 1%1:200000 30 ML VIAL INJ ONE (09:12)
[2022-07-24 09:20] LABS: BARBITURATE, URINE NEGATIVE ng/ml (NEG <=200); BENZODIAZEPINE, URINE NEGATIVE ng/mL (NEG <=200); CANNABINOID, URINE NEGATIVE ng/mL (NEG <=50); COCAINE, URINE NEGATIVE ng/mL (NEG <=300); OPIATE, URINE NEGATIVE ng/mL (NEG <=2000); PHENCYCLIDINE SCREEN,URINE NEGATIVE ng/mL (NEG <=25)
[2022-07-24 09:29] LABS: SALICYLATE < 2.8 mg/dL (2.8-20.0)
[2022-07-24 09:30] LABS: ACETAMINOPHEN < 0.5 ug/ml (10-30)
[2022-07-24] MEDS: LIDOCAINE/EPI 1% 1:100000 20 ML VIAL INJ ONE (10:41)
[2022-07-24] MEDS: ED NON STOCK ORDER 1 EA MISC SUBQ ONE (10:42)
[2022-07-24] MEDS ORDERED: BACITRACIN OINT 500 UNITS/GM PKT TP ONE (10:45)
[2022-07-24] MEDS: BACITRACIN OINT 500 UNITS/GM PKT TP ONE (10:48)
[2022-07-24] MEDS: OLANZapine 5 MG ODT SL ONE (15:38)
[2022-07-24 16:40] VITALS: BP 132/88
== END 2022-07-24 16:47 ==
LOC: MED 07:33
DX: S61.512A Laceration without foreign body of left wrist, initial encounter (principal); Z20.822 Contact with and (suspected) exposure to COVID-19; T14.91XA Suicide attempt, initial encounter; F32.9 Major depressive disorder, single episode, unspecified; Z79.899 Other long term (current) drug therapy; Z88.8 Allergy status to other drugs, medicaments and biological substances; Z88.1 Allergy status to other antibiotic agents; X78.8XXA Intentional self-harm by other sharp object, initial encounter; Y93.89 Activity, other specified; Y92.89 Other specified places as the place of occurrence of the external cause; Y99.8 Other external cause status
CPT/HCPCS: 12002; 36415; 73110; 80048; 80305; 85025; 87426; 87635; 90471; 90715; 96372; 99284; C9803; G0480; G0482; J2001